=== PATIENT | female | born 1955 | race Caucasian/White ===

== ENCOUNTER → 2016-06-17 07:02 | Day surgery (SDC) | payer OTHER ==
[~2016-06-17 07:02] MED LIST: Acetaminophen TAB* 325 MG PO PRN; Buffered Lidocaine 1% SYRIN* 3 ML/SYR SYRINGE INTRADERM ONE; Cyclopentolate 1% OPTH.SOL* 2 ML BTL ONE; Flurbiprofen 0.03% OPTH.SOL* 2.5 ML BTL ONE; Lidocaine 1% MPF* 2 ML VIAL ONE; Lidocaine 2% EPI 1:200000 MPF* 20 ML VIAL ONE; Midazolam* 1 MG/ML 5 ML VIAL (5 MG) ONE; Neomycin/Polymy/Dex OPTH.SUSP* MAXITROL 0.1% 5 ML ONE; Phenylephrine 2.5% OPTH.SOL* 2 ML BTL ONE; Povidone Iodine 5% OPTH* 30 ML BTL ONE; Proparacaine 0.5% OPHTH.SOL* 15 ML BTL ONE; acetaZOLAMIDE TAB* 250 MG ONE
[2016-06-17 09:49] VITALS: BP 134/80
--- NOTE | 2016-06-17 23:37 | OP ---
DATE OF OPERATION: 06/17/16 [facility] DATE OF : 51 SURGEON: Mark Rocha MD PREOPERATIVE DIAGNOSIS: Cataract, left eye. POSTOPERATIVE DIAGNOSIS: Cataract, left eye. OPERATIVE PROCEDURE: Phacoemulsification, left eye with IOL. DESCRIPTION OF PROCEDURE: The patient was brought to the operating room after being given 1/2% Alcaine with epinephrine drops in the preoperative area. The eye was prepped and draped in the usual sterile fashion. Sterile drape and eyelid speculum were placed. Again, topical 1/2% Alcaine with epinephrine was given. A paracentesis incision was made at the 3 o'clock position with the No.75 blade. Clear cornea incision 2.2 x 2.2-mm was created at the 6 o'clock position starting at the anterior limbus using the 2.2-mm keratome. The anterior chamber was irrigated with 0.4 mL of 1% non-preservative intracameral lidocaine and filled with DisCoVisc. A capsulorrhexis was completed using the cystotome and the Utrata forceps. Hydrodissection was performed with balanced salt solution. The lens nucleus was removed with the Phacoemulsification handpiece without incident. Cortex was removed with the irrigation-aspiration handpiece. The capsular bag was re-inflated using DisCoVisc and an [id number] implant was inserted with the shooter. The irrigation-aspiration handpiece was used to remove all residual DisCoVisc. The eye was refilled with balanced salt solution and the wound checked and found to be watertight. Topical Maxitrol drops were given. [id number]/[facility] #: [id number] [facility]ERNITY HOSPITALDave
== END | disposition home or self-care (01) ==
LOC: OREAST 07:02
PROVIDERS: ATTEND Specialist
DX: H25.812 Combined forms of age-related cataract, left eye (principal); E03.9 Hypothyroidism, unspecified
CPT/HCPCS: J2250; V2632

== ENCOUNTER 2016-07-23 07:23 | Inpatient (IN) | payer OTHER ==
--- NOTE | 2016-07-20 13:42 | HP ---
HISTORY AND PHYSICAL: DATE OF SURGERY: 07/23/16 DATE OF OFFICE VISIT: 07/20/16 SURGEON: Clarisa Barr MD. (DICTATED BY RUBY CAMARILLO) PROCEDURE: Right total hip arthroplasty. CHIEF COMPLAINT: Right hip pain. HISTORY OF PRESENT ILLNESS: Ms. Vasques is a 61-year-old female with complaints of right hip pain secondary to advanced osteoarthritis. She has failed conservative management and has elected to proceed with a right total hip arthroplasty, which is scheduled for 07/23/[address] Barr. PAST MEDICAL HISTORY: 1. High cholesterol. 2. Gout. 3. Osteoarthritis. 4. GERD. 5. Hypothyroidism. PAST SURGICAL HISTORY: 1. Bunionectomy. 2. Cataract surgery. 3. Trigger finger release. 4. Carpal tunnel release. 5. Appendectomy. 6. Hysterectomy. CURRENT MEDICATIONS: 1. Livalo 2 mg every day. 2. Lexapro 10 mg every day. 3. Levoxyl 100 mcg every day. 4. Glucosamine chondroitin 500 complex daily. 5. Calcium plus vitamin D daily. 6. Multivitamin daily. 7. Biotin. 8. Aleve. ALLERGIES: To ADHESIVE TAPE. FAMILY HISTORY: Heart disease, thyroid cancer, diabetes. SOCIAL HISTORY: She is a 61-year-old female. She lives alone. She is a fiber optic assembly worker. She does not smoke, use drugs or alcohol. REVIEW OF SYSTEMS: A complete 14-point review of systems was reviewed with the patient and was positive for hypothyroidism and occasional PVCs. She denies any anesthesia problems, history of DVT, PE, hepatitis C, HIV, or MRSA. PHYSICAL EXAMINATION GENERAL: She is well developed, well nourished, in no acute distress. VITAL SIGNS: She stands 5 feet 2 inches tall and weighs 165 pounds. Her blood pressure is 132/84. Heart rate 76. HEENT: Normocephalic, atraumatic. NECK: Supple. No palpable lymph nodes. Trachea is midline. CARDIO: Regular rate and rhythm. PULMONARY: The lungs are clear to auscultation bilaterally. ABDOMEN: Soft, nontender, nondistended. MUSCULOSKELETAL: Right lower extremity, the skin is intact. She has decreased range of motion of the right hip. She walks with an antalgic-type gait favoring her right hip. Her lower extremity muscle group strengths are intact at 5/5. She has 2+ dorsalis pedis pulses and intact sensation. NEUROLOGIC: She is alert and oriented x3. Cranial nerves II through XII are intact. ASSESSMENT AND PLAN: Ms. Vasques is a 61-year-old female with complaints of right hip pain secondary to advanced osteoarthritis. She has failed conservative management and elected to proceed with a right total hip arthroplasty, which is scheduled for 07/23/[address] Barr discussed the risks and benefits of the surgery at today's visit and all of her questions were answered. Coumadin, Colace, and Percocet were sent to her pharmacy for postoperative DVT prophylaxis and pain control. She will see Dr. Barr back 2 weeks after the surgery. RUBY CAMARILLO [id number]/[facility] #: [id number] MTDD
[~2016-07-23 07:23] MED LIST changes: -Acetaminophen TAB* 325 MG PO PRN; +Buffered Lidocaine 1% SYR 3ML* 3 ML/SYR SYRINGE INTRADERM ONE; -Buffered Lidocaine 1% SYRIN* 3 ML/SYR SYRINGE INTRADERM ONE; -Cyclopentolate 1% OPTH.SOL* 2 ML BTL ONE; -Flurbiprofen 0.03% OPTH.SOL* 2.5 ML BTL ONE; -Lidocaine 1% MPF* 2 ML VIAL ONE; -Lidocaine 2% EPI 1:200000 MPF* 20 ML VIAL ONE; -Midazolam* 1 MG/ML 5 ML VIAL (5 MG) ONE; -Neomycin/Polymy/Dex OPTH.SUSP* MAXITROL 0.1% 5 ML ONE; -Phenylephrine 2.5% OPTH.SOL* 2 ML BTL ONE; -Povidone Iodine 5% OPTH* 30 ML BTL ONE; -Proparacaine 0.5% OPHTH.SOL* 15 ML BTL ONE; -acetaZOLAMIDE TAB* 250 MG ONE
[2016-07-23] MEDS ORDERED: ceFAZolin 2 GM PREMIX(*) 2 GM/50 ML BAG IVPB ONE (07:39)
[2016-07-23] MEDS ORDERED: Buffered Lidocaine 1% SYRIN* 5 ML/SYR SYRINGE ONE (07:40)
[2016-07-23] MEDS ORDERED: Midazolam* 1 MG/ML 5 ML VIAL (5 MG) ONE (08:58)
[2016-07-23] MEDS ORDERED: Morphine PF AMP (0.5MG/ML)* 5 MG/10 ML AMP ONE (08:58)
[2016-07-23] MEDS ORDERED: fentaNYL* 50 MCG/ML 2 ML VIAL (100 MCG VIAL) ONE (08:58)
[2016-07-23] MEDS ORDERED: Propofol* 10 MG/ML 20 ML BTL IV PUSH ONE (10:22)
[2016-07-23] MEDS ORDERED: Metoclopramide IV* 5 MG/ML 2 ML VIAL IV PRN (10:25)
[2016-07-23] MEDS ORDERED: HYDROmorphone* 1 MG/ML 1 ML SYR IV PRN (10:25)
[2016-07-23] MEDS ORDERED: Scopolamine 1.5 mg* PATCH TRANSDERM PRN (10:25)
[2016-07-23] MEDS ORDERED: Ondansetron INJ* 2 MG/ML VIAL IV PRN (10:25)
[2016-07-23] MEDS ORDERED: fentaNYL* 50 MCG/ML 2 ML VIAL (100 MCG VIAL) IV PRN (10:25)
[2016-07-23] MEDS ORDERED: DiMENhydriNATE IV* 50 MG/ML VIAL IV PUSH PRN (10:46)
[2016-07-23] MEDS ORDERED: oxyCODONE TAB* 5 MG TAB PO PRN ×2 (10:46→21:38)
[2016-07-23] MEDS ORDERED: Naloxone* 0.4 MG/ML 1 ML VIAL IV PRN (10:46)
[2016-07-23] MEDS ORDERED: Acetaminophen TAB* 325 MG PO PRN (10:46)
[2016-07-23] MEDS ORDERED: EPHEDrine (Pressors)* 50 MG/ML VIAL ONE (11:44)
--- NOTE | 2016-07-23 12:05 | RAD ---
INDICATION: Right total hip replacement surgery. TECHNIQUE: A portable film of the pelvis was obtained in the operating room. FINDINGS: The patient is undergoing a right total hip replacement surgery. The acetabular prostheses is in place. There is a femoral template in place. There is a surgical defect along the lateral aspect of the hip. There is a metallic marker present overlying the hip region. IMPRESSION: INTRAOPERATIVE CONTROL FILM.
[2016-07-23] MEDS ORDERED: Magnesium Hydroxide LIQ* 30 ML UDC PO PRN (12:09)
[2016-07-23] MEDS ORDERED: Polyethylene Glycol 3350* 17 GM PACKET PO PRN (12:09)
[2016-07-23] MEDS ORDERED: Bisacodyl SUPP* 10 MG SUPP PR PRN (12:09)
[2016-07-23] MEDS ORDERED: Bupivacaine 0.5% SDV PF* 30 ML VIAL ONE (12:26)
--- NOTE | 2016-07-23 13:26 | RAD ---
Indication: Postop RIGHT total hip replacement Comparison: June 19, 2016 Technique: AP pelvis and proximal femurs, AP RIGHT hip, crosstable lateral RIGHT hip. Report: RIGHT total hip prosthesis in place with normal alignment. Negative for periprosthetic fracture. Surrounding soft tissue edema and lateral subcutaneous emphysema. IMPRESSION: Unremarkable immediate postop appearance following RIGHT total hip replacement.
[2016-07-23] MEDS: Nalbuphine* 20 MG/ML 1 ML VIAL IV PRN ×2 (15:41→21:51)
[2016-07-23] MEDS ORDERED: Warfarin TAB(*) 6 MG PO ONE (17:00)
[2016-07-23] MEDS: ceFAZolin 1 GM in Dextrose (*) 1 GM/50 ML BAG IVPB SCH (17:33)
[2016-07-23] MEDS: Pitavastatin (NF) 2 MG TAB PO SCH (17:35)
[2016-07-23] MEDS: oxyCODONE TAB* 5 MG TAB PO PRN ×2 (18:38→21:49)
[2016-07-23] MEDS: Docusate CAP* 100 MG PO SCH (21:50)
[2016-07-24] MEDS: ceFAZolin 1 GM in Dextrose (*) 1 GM/50 ML BAG IVPB SCH ×2 (02:22→09:41)
[2016-07-24] MEDS: oxyCODONE TAB* 5 MG TAB PO PRN (02:29)
[2016-07-24] MEDS ORDERED: oxyCODONE/Acetamin 5/325 MG* TAB PO PRN (03:00)
[2016-07-24] MEDS ORDERED: Ondansetron TAB* 4 MG PO PRN (03:00)
[2016-07-24] MEDS ORDERED: oxyCODONE TAB* 5 MG TAB PO PRN (03:00)
[2016-07-24] MEDS ORDERED: Morphine INJ* 2 MG/ML 1 ML SYRINGE IV PRN (03:00)
[2016-07-24] MEDS ORDERED: Acetaminophen TAB* 325 MG PO PRN (03:00)
[2016-07-24] MEDS ORDERED: diPHENhydraMINE IV* 50 MG/ML 1 ml VIAL (BENADRYL) IV PRN (03:00)
[2016-07-24] MEDS: Levothyroxine TAB* 100 MCG TAB PO SCH (05:45)
[2016-07-24 06:39] LABS: Hematocrit 31 % (35-47); Hemoglobin 11.2 g/dl (12.0-16.0)
[2016-07-24 06:53] LABS: Calcium 8.5 mg/dL (8.6-10.3); EGFR African American 110.5 (>60); EGFR Non-African American 85.9 (>60); Potassium 3.7 mmol/L (3.5-5.0)
--- NOTE | 2016-07-24 08:17 | OP ---
DATE OF OPERATION: 07/23/16 - ROOM #342 DATE OF : 51 ATTENDING SURGEON: Clarisa Barr MD TERMINAL SYSTEM OPERATOR: RUBY Schwartz, Ms. Villa did help throughout the procedure with preparation of the leg, wound retraction, manipulation of the leg, and wound closure. ANESTHESIOLOGIST: Gini Hale MD ANESTHESIA: Spinal. PRE-OP DIAGNOSIS: Severe end-stage degenerative osteoarthritis of the right hip joint. POST-OP DIAGNOSIS: Severe end-stage degenerative osteoarthritis of the right hip joint. OPERATIVE PROCEDURE: Right total hip arthroplasty. ESTIMATED BLOOD LOSS: 300 cc. COMPLICATIONS: None. SPECIMEN: Femoral head and acetabular reaming, sent to pathology. HARDWARE USED: This is uncemented [email or web address] total hip hardware. For the cup, a Tritanium cluster hole shell 48C, 220-mm cancellous bone screws were used, polyethylene liner, Trident X3 0-degree 32C. For the stem, an Accolade TMZF, size 2.5 with a 127-degree neck. For the head, a Biolox delta 32 +0 ceramic V40 femoral head. BRIEF HISTORY/INDICATION: Ms. Vasques is a 61-year-old female with chronic right hip pain, which has not resolved with conservative treatment. She failed treatment with antiinflammatories, pain medication, and physical therapy. Radiographs showed severe qprl-sd-[id number] contact and arthritis of the right hip. Due to the patient's continued pain and decreased quality of life, she elected to have right total hip arthroplasty. Informed consent was obtained from the patient. She understands the risks of the procedure include but are not limited to bleeding, infection, damage to nearby structures, continued pain, need for further surgery, intraoperative fracture, nerve palsy, hardware failure or loosening, dislocation, leg length discrepancy, stroke, heart attack , blood clot, and . She wished to proceed. INTRAOPERATIVE FINDINGS: Intraoperatively, the patient was noted to have a dysplastic hip with a shallow acetabular cup. She had complete loss of cartilage in the acetabulum and femoral head. Osteopenia was noted, which was advanced compared to her age. DESCRIPTION OF PROCEDURE: Ms. Vasques was identified in the preanesthesia unit. Her right lower extremity was marked as the correct operative site. Informed consent was signed and placed in the chart. The patient was taken to the operating room and placed under spinal anesthesia. The Szymanski catheter was placed. The patient was placed in the left lateral decubitus position on the peg board. All bony prominences were well padded. Right lower extremity was prepped and draped in the usual sterile fashion. Preop time-out was made to correctly identify the patient's side and site. Appropriate perioperative antibiotics were given within 1 hour of incision. A 12-cm posterior hip incision was made with a 10-blade and carried down to the lateral fascial layer. Lateral fascial layer was then incised in line with the skin incision. A Charnley retractor was placed. Piriformis and conjoined tendons were identified. These were elevated off the posterolateral femur using electrocautery and tagged with two #5 Ethibonds. Next, electrocautery was used to make a posterolateral capsular flap and the capsule was also tagged with #5 Ethibonds. The hip was carefully dislocated. Lesser troch to center of the femoral head measured 50 mm. Oscillating saw was used to make a femoral neck cut, appropriate based on preop templating. The femoral head was removed and sent to pathology. The femur was carefully retracted anteriorly. After appropriate placement of retractor, the acetabulum was easily visualized. Any remaining labrum was sharply removed from the acetabular rim using a long-handle knife. The acetabulum was noted to be dysplastic with complete loss of cartilage. There is minimal anterior and posterior blank and there is a shallow cup. Acetabulum was sequentially reamed up to a size 47. A good bleeding bone bed was obtained. Osteopenia was noted. 47 trial had excellent fit. A Tritanium cluster hole shell size 48C was chosen. This was impacted into the acetabulum without difficulty. The acetabular shell was stable with appropriate anteversion and abduction angle. Two 6.5 cancellous bone screws were placed in the superoposterior quadrants, these were length of 20 and 20 mm. The Trident X3 0-degree polyethylene insert was chosen as the liner. This was 32C. This was impacted into the acetabulum without difficulty. Attention was next turned to the preparation of the femur. A canal finder was used to enter the proximal femur. The proximal femur was sequentially broached up to a size 2.5. A 127-degree neck trial and 32 +0 femoral head trial were chosen. Lesser troch to center of the femoral head measured 52 mm. Hip was reduced and taken through range of motion. The hip was stable in all positions. Leg length and soft tissue tension were deemed to be appropriate. The hip was carefully dislocated. All trials were carefully removed. Final implant chosen was an Accolade TMZF, size 2.5 with a 127-degree neck. This was impacted into the femoral canal without difficulty. A 32 +0 Biolox delta ceramic V40 femoral head was chosen. This was impacted onto the femoral neck without difficulty. Lesser troch to center of the femoral head measured 52 mm. This was appropriate based on preop templating. The hip was carefully reduced at this time. The hip was taken through range of motion and was stable in all positions. There was good soft tissue tension. The hip was copiously irrigated with sterile saline. Previously tagged capsule and tendons were reapproximated to the posterolateral femur through 2 trochanteric drill holes. The lateral fascial layer was reapproximated using interrupted #1 Vicryls. The rest of the incision was closed in a layered fashion using 0 and 2-0 Vicryls. Skin was closed using 3-0 Monocryl and Dermabond. Sterile Adaptic, 4x4's, and paper tape were used to cover the incision. The patient's anesthesia was reversed without difficulty. She was taken to the PACU in stable condition. Intended weightbearing will be weightbearing as tolerated. Intended DVT prophylaxis will be Coumadin with a Lovenox bridge. [id number]/[facility] #: [id number] MAK
[2016-07-24] MEDS: CMC Escitalopram (NF) 10 MG TAB PO SCH (09:27)
[2016-07-24] MEDS: Docusate CAP* 100 MG PO SCH ×2 (09:28→20:29)
[2016-07-24] MEDS: oxyCODONE/Acetamin 5/325 MG* TAB PO PRN ×4 (10:35→22:45)
[2016-07-24] MEDS: Enoxaparin(*) 30 MG/0.3 ML SYR SUBCUT SCH (11:54)
[2016-07-24 12:57] LABS: Urine Bacteria Absent (Absent); Urine Bilirubin Negative (Negative); Urine Glucose Negative (Negative); Urine Nitrite Negative (Negative)
--- NOTE | 2016-07-24 16:17 | RAD ---
INDICATION: Postoperative fever COMPARISON: July 21, 2016 TECHNIQUE: PA and lateral dual-energy views were obtained. FINDINGS: Bones/Soft Tissues: There are no acute bony findings. Cardiomediastinal: The cardiomediastinal silhouette is normal. Lungs: There are no infiltrates. Pleura: There are no pleural effusions. Other: None IMPRESSION: NO ACTIVE DISEASE.
[2016-07-24] MEDS ORDERED: Warfarin TAB(*) 6 MG PO ONE (17:30)
[2016-07-24] MEDS: Pitavastatin (NF) 2 MG TAB PO SCH (17:44)
[2016-07-25] MEDS: oxyCODONE/Acetamin 5/325 MG* TAB PO PRN ×3 (05:32→12:03)
[2016-07-25] MEDS: Levothyroxine TAB* 100 MCG TAB PO SCH (05:33)
[2016-07-25 06:17] LABS: Hematocrit 31 % (35-47); Hemoglobin 10.6 g/dl (12.0-16.0)
[2016-07-25 08:18] VITALS: BP 126/76
[2016-07-25] MEDS: CMC Escitalopram (NF) 10 MG TAB PO SCH (08:47)
[2016-07-25] MEDS: Docusate CAP* 100 MG PO SCH (08:47)
--- NOTE | 2016-07-25 10:28 | PN ---
Progress Note - Progress Note SOAP: Subjective: [Pt was seen today sitting up in chair. She states that she is feeling very good today. Pain is well controlled and she has not been having any fevers. Pt denies any SOB or calf pain. ] Objective: [General: Pt is awake, alert and oriented. NAD. Appropriate mood and affect MSK: RLE: Dressing was changed today. Incision was well approximated. Previous dressing had dry blood on it. Pt is able to dorsiflex and planter flex. PT and DP pulses 2+. Sensation is intact to light touch. ] Vital Signs Temp 99.3 F 07/25/16 07:48 Pulse 86 07/25/16 07:48 Resp 16 07/25/16 08:47 BP 126/76 07/25/16 07:48 Pulse Ox 99 07/25/16 07:48 Intake & Output 07/24/16 07/25/16 07/25/16 18:59 06:59 18:59 Intake Total 1984 700 Output Total 3050 700 Balance -1066 0 Intake: IV Fluids 990 LR 990 IVPB 114 ABX - CEFAZOLIN 114 Oral 880 700 Output: Urine 1050 700 Szymanski 2000 Other: Estimated Void Large Assessment: [S/P RTHA ] Plan: [Pt was cleared for discharge today She will hold warfarin until her recheck date. Continue PT at home Continue pain meds at home. Follow up in 10 - 14 days for suture removal. ]
[2016-07-25] MEDS: Enoxaparin(*) 30 MG/0.3 ML SYR SUBCUT SCH (12:05)
--- NOTE | 2016-07-26 02:29 | DS ---
DISCHARGE SUMMARY: DATE OF ADMISSION: 07/23/16 DATE OF DISCHARGE: 07/25/16 ADMITTING DIAGNOSIS: Right hip osteoarthritis. CONSULTATIONS: Physical Therapy/Occupational Therapy. HISTORY OF PRESENT ILLNESS: Ms. Vasques is a 61-year-old female with complaints of right hip pain secondary to advanced osteoarthritis. She failed conservative management and elected to proceed with a right total hip arthroplasty, which was now done by Dr. Barr on 07/23/16. HOSPITAL COURSE: The patient was admitted to [facility] on 07/23/16 and underwent a right total hip arthroplasty with no complications. The patient recovered briefly in the postop anesthesia care unit and then was transferred to the short stay surgical unit in stable condition. On postop day 1, the patient's H and H was 11.2 and 31, INR was 1.21 after 6 mg Coumadin the night before. The dressing was clean, dry and intact. The right lower extremity was neurovascularly intact. She could demonstrate dorsi and plantar flexion with good strength. The patient was able to get out of bed with physical therapy. Pain was controlled with 10 mg of oxycodone. The patient did have a temperature of 102.3 on this day. Temperature decreased after and the patient remained afebrile through the remainder of the hospital course. On postop day 2, the urinary catheter was discontinued. The patient was able to void without any difficulty. Incision was found to be benign with minimal drainage. No erythema. No warmth. The patient's H and H was 10.6 and 31, INR was 2.21 after 6 mg of Coumadin the night before. The patient was able to ambulate using a rolling walker and assistance. The patient's pain was well controlled and was found to be stable for discharge. DISCHARGE CONDITION: Good. DISCHARGE MEDICATIONS: New prescriptions: 1. Percocet 5/325. 2. Colace. 3. Warfarin 2 mg to be taken as provider instructs. Home medications: 1. Livalo 2 mg every day. 2. Lexapro 10 mg every day. 3. Levoxyl 100 mcg every day. 4. Glucosamine and chondroitin 500 mg complex daily. 5. Calcium plus vitamin D. 6. Multivitamin. 7. Biotin. 8. Aleve. DISCHARGE INSTRUCTIONS: The patient was instructed to follow up in 2 weeks at the office for suture removal. She was advised not to put any creams or ointments on the incision. She is allowed to shower in 3 to 4 days. She is instructed not to submerge the incision in any water and to pat dry after finished. She is instructed not to drive while on narcotic pain medications. She will take Percocet 5/325 one to two every 4 to 6 hours as needed for pain. She will hold warfarin tonight and until the recheck. She will call the office if temperature is greater than 100.5, pain continues to increase despite medication, increased redness around the incision site with increased heat, large amount of bleeding or yellowish drainage from the wound or an increase in calf pain. She will go to the ER should she have any sort of shortness of breath or chest pain. RUBY MARTINES [id number]/[facility] #: [id number] MAK
--- NOTE | 2016-07-26 22:42 | PN ---
Progress Note - Progress Note SOAP: 07/24/2016 @ 9:30 AM Subjective: 61 y/o female s/p R WILMAN by Dr. Barr on 07/23/2016. Patient continuing to have pain overnight. Ambulatory, eager for DC home. Tmax overnight 101, otherwise VSS Objective: General- Well appearing, NAD MSK- Surgical dressing intact, no drainage noted, + DF/PF. PT 2+ R LE. Mild b/l LE edema. Lungs- CTA b/l no c/r/w Assessment: 61 y/o female s/p R WILMAN by Dr. Barr on 07/23/2016. Plan: - Patient eager for D/C, however due to elevated temp overnight and continued this AM fever work up warrented - DVT lovenox, ASA upon DC - Continue PT OT
== END 2016-07-25 12:00 | disposition home health service (06) | DRG 301 ==
LOC: AA 07:23 → SSU 13:15
PROVIDERS: ADMIT Orthopaedic Surgery Adult Reconstructive Orthopaedic Surgery; ATTEND Orthopaedic Surgery Adult Reconstructive Orthopaedic Surgery
PROC: 0SR904Z Replacement of Right Hip Joint with Ceramic on Polyethylene Synthetic Substitute, Open Approach (ICD-10-PCS; principal; 2016-07-23 09:00)
DX: M16.11 Unilateral primary osteoarthritis, right hip (principal); F32.9 Major depressive disorder, single episode, unspecified; Z79.01 Long term (current) use of anticoagulants; E78.00 Pure hypercholesterolemia, unspecified; M10.9 Gout, unspecified; K21.9 Gastro-esophageal reflux disease without esophagitis; E03.9 Hypothyroidism, unspecified; Z98.49 Cataract extraction status, unspecified eye; Z82.49 Family history of ischemic heart disease and other diseases of the circulatory system; Z83.3 Family history of diabetes mellitus; Z80.9 Family history of malignant neoplasm, unspecified; Z91.048 Other nonmedicinal substance allergy status; F41.9 Anxiety disorder, unspecified; G89.29 Other chronic pain; M54.5 Low back pain; Q65.89 Other specified congenital deformities of hip; M85.88 Other specified disorders of bone density and structure, other site
CPT/HCPCS: 36415; 71020; 72170; 80048; 81003; 81015; 85014; 85018; 85610; 94760; A9270-GY; C1713; C1776; J0690; J1650; J2250; J2300; J2704; J3010

== ENCOUNTER 2017-02-22 07:17 | Day surgery (SDC) | payer OTHER ==
--- NOTE | 2017-02-11 14:33 | HP ---
PREOPERATIVE HISTORY AND PHYSICAL: DATE OF ADMISSION/SURGERY: 02/22/17 ATTENDING SURGEON: Miguel Angel Izaguirre MD * (DICTATED BY RUBY CORBETT) PROCEDURE: Right shoulder arthroscopic rotator cuff repair and debridement. CHIEF COMPLAINT: Right shoulder pain. HISTORY OF PRESENT ILLNESS: Suzanne is a 62-year-old female who presents to the clinic for right shoulder pain due to rotator cuff tear. She has failed conservative measures to include an injection and physical therapy and therefore , has agreed to undergo a right shoulder arthroscopic rotator cuff repair, decompression and debridement with Dr. Izaguirre on 02/22/17. PAST MEDICAL HISTORY: Hypercholesterolemia, osteoarthritis, GERD, hypothyroidism, depression, history of infrequent PVC's. PAST SURGICAL HISTORY: Bunionectomy, cataract surgery, trigger finger carpal tunnel release, right hip, appendectomy, and tubal ligation. The patient denies prior complications with anesthesia. MEDICATIONS: 1. Lidoderm 5%, apply every 12 hours as needed for pain. 2. Amoxicillin 500 mg 4 caps by mouth 1 hour before appointment. 3. Livalo 2 mg, take 1 by mouth every morning. 4. Lexapro 10 mg 1 by mouth every day. 5. Levoxyl 100 mcg 1 by mouth every day. 6. Glucosamine and chondroitin 500 mg 1 by mouth daily. 7. Calcium 500 plus vitamin D 1 by mouth daily. 8. Multivitamin 1 by mouth daily. 9. Biotin 1 by mouth daily. 10. Aleve 200 mg 1 tab twice a day as needed for pain. ALLERGIES: No known drug allergies. She is allergic to ADHESIVE TAPE. FAMILY HISTORY: Positive for paternal diabetes, heart disease, cancer, and hypertension. SOCIAL HISTORY: She lives alone. She denies tobacco or illegal drug use. She reports daily alcohol consumption, 2 glasses of wine a day. REVIEW OF SYSTEMS: A 14-point review of systems was reviewed with the patient. Positive for current complaint, otherwise negative. Denies fever, chills. Denies chest pain or shortness of breath. Denies history of bleeding disorder. Denies history of DVT or PE. PHYSICAL EXAMINATION GENERAL: Well-developed, well-nourished 62-year-old female, in no acute distress. VITAL SIGNS: Height 62 inches, weight 132 pounds. Pulse 62, blood pressure 126 /76, respiratory rate 16, temperature 97.0. BMI 27.9. HEENT: Normocephalic, atraumatic. PERRLA. Throat clear. NECK: Supple. PULMONARY: Lungs are clear to auscultation bilaterally. No wheezing, rhonchi, or rales. CARDIO: Regular rate and rhythm. S1 and S2. No murmurs, gallops, or rubs. No edema. ABDOMEN: Positive bowel sounds, soft, nontender. NEUROLOGIC: Alert and oriented x 3. Cranial nerves are grossly intact. Sensation is intact to light touch. MUSCULOSKELETAL: Right upper extremity: MRI of the right shoulder reveals a full thickness tear of the supraspinatus tendon with retraction of the muscle, 2.8 cm superior migration of the humeral head, mild osteoarthritic glenohumeral joint changes. IMPRESSION: Right shoulder rotator cuff tear. PLAN: The patient is scheduled to undergo a right shoulder arthroscopic rotator cuff repair, decompression and debridement. She has been cleared by her PCP pending blood work. She will return to the office 10 to 14 days postop for followup and suture removal. Percocet will be sent to the patient's pharmacy for postop pain management. RUBY CORBETT [id number]/[facility] #: [id number] MAK
[~2017-02-22 07:17] MED LIST changes: +Buffered Lidocaine 0.9% SYRIN* 5 ML/SYR SYRINGE INTRADERM ONE; -Buffered Lidocaine 1% SYR 3ML* 3 ML/SYR SYRINGE INTRADERM ONE
[2017-02-22] MEDS ORDERED: ceFAZolin 2 GM PREMIX (*) 2 GM/50 ML BAG IVPB ONE (07:36)
[2017-02-22] MEDS ORDERED: Midazolam* 1 MG/ML 2 ML VIAL (2 MG) ONE (08:57)
[2017-02-22] MEDS ORDERED: fentaNYL* 50 MCG/ML 2 ML VIAL (100 MCG VIAL) ONE (08:57)
[2017-02-22] MEDS ORDERED: PROCHLORPERAZINE INJ 5 MG/ML 2 ML VIAL IV PRN (09:10)
[2017-02-22] MEDS ORDERED: Acetaminophen TAB* 325 MG PO PRN (09:10)
[2017-02-22] MEDS ORDERED: Ondansetron INJ* 2 MG/ML VIAL IV PRN (09:10)
[2017-02-22] MEDS ORDERED: oxyCODONE TAB* 5 MG TAB PO PRN (09:10)
[2017-02-22] MEDS ORDERED: DiMENhydriNATE IV* 50 MG/ML VIAL IV PUSH PRN (09:10)
[2017-02-22] MEDS ORDERED: HYDROmorphone INJ* 1 MG/ML CARPUJECT SYRINGE IV PRN (09:10)
[2017-02-22] MEDS ORDERED: fentaNYL* 50 MCG/ML 2 ML VIAL (100 MCG VIAL) IV PRN (09:10)
[2017-02-22] MEDS ORDERED: Famotidine IV* 10 MG/ML 2 ML (20 mg) ONE (09:48)
[2017-02-22] MEDS ORDERED: ROPIVACAINE 5 MG/ML 30 ML BTL (0.5%) ONE (09:49)
[2017-02-22] MEDS ORDERED: Bupivacaine 0.25% SDV* 30 ML ONE (09:54)
[2017-02-22] MEDS ORDERED: Ondansetron INJ* 2 MG/ML VIAL ONE (11:22)
[2017-02-22] MEDS ORDERED: Propofol* 10 MG/ML 20 ML BTL IV PUSH ONE (11:22)
[2017-02-22] MEDS ORDERED: Dexamethasone IV* 4 MG/ML 1 ML (4 MG) ONE (11:22)
[2017-02-22] MEDS ORDERED: Ketorolac INJ* 30 MG/ML 1 ML VIAL ONE (11:22)
[2017-02-22 13:17] VITALS: BP 120/75
--- NOTE | 2017-02-23 04:12 | OP ---
CC: PCP, Abraham Lemons MD * DATE OF OPERATION: 02/22/17 - [facility] DATE OF : 51 SURGEON: Miguel Angel Izaguirre MD CHAIRLIFT OPERATOR: RUBY Shaffer. An assistant food service manager was needed for the entirety of the case to help with positioning, retraction, and utilized throughout all portions of the case. ANESTHESIOLOGIST: Buddy Guido MD ANESTHESIA: General interscalene block. PRE-OP DIAGNOSIS: Right shoulder complete rotator cuff tear. POST-OP DIAGNOSES: Right shoulder complete rotator cuff tear with large anterolateral acromial spur and partial tearing in the subscapularis as well as mild osteoarthritis of the shoulder. OPERATIVE PROCEDURE: Right shoulder arthroscopy with extensive glenohumeral debridement includin. Chondroplasty of the humeral head. 2. Subacromial decompression with acromioplasty. 3. Rotator cuff repair for supraspinatus and part of infraspinatus large tear in a double-row fashion. INDICATIONS: Suzanne Vasques is a 62-year-old female, who recently had a hip replacement done that she did very well with. She has shoulder pain, she is diagnosed with a complete tear of the rotator cuff. She has failed conservative management. Risks and benefits of surgery versus nonoperative treatment were discussed at length. She has elected to proceed with surgery. COMPLICATIONS: None. ESTIMATED BLOOD LOSS: Minimal. IMPLANTS USE: Two Shields and Nephew 4.75 Healicoils and 1 Multifix. DESCRIPTION OF PROCEDURE: The patient was greeted in the preoperative area by the attending surgeon. Correct extremity was marked and consent was confirmed. The patient was brought back to the operating suite where she was placed in supine position on the operating room table and she underwent interscalene nerve block by the anesthesiologist after which she underwent general anesthesia with LMA intubation, after which she was placed in the left lateral decubitus position. She was then secured with a pegboard and axillary roll was placed. The right arm was draped unsterile with 10 pounds of traction. The right shoulder was prepped and draped in the usual sterile fashion beginning with chlorhexidine soap, scrub, and alcohol wipe and final prep of ChloraPrep. After appropriate surgical pause indicating side, site, procedure, and administration of antibiotics, the standard posterolateral portal was made sharply with 11 blade. Scope was introduced to the joint. Joint was examined. There was abundant significant synovitis in the shoulder. The biceps appeared to have been ruptured spontaneously. There was evidence of a full- thickness large tear of the supraspinatus. The glenoid had grade 1 and 2 changes. The humeral head had areas of grade 0 to 1 changes and areas of grade 2 changes with small unstable flaps. The anterior portal was made in an outside- in fashion. The shaver was used to debride back the anterior, posterior, superior labrum as well as the biceps stump. A small chondroplasty was done on the humeral head. There was abundant synovitis to where the greater tuberosity was meeting the cartilage surface. The inferior recess was intact with significant amount of synovitis. The subscap was intact, but had high-grade partial thickness tearing. Decision was made to not repair this as it did not encompass more than 10% of the tendon by this view. There was hemostasis obtained at all times using electrocautery device. The scope was positioned in subacromial space. Subacromial space was examined. There was abundant bursa present. It was very hyperemic and friable. This was debrided back using shaver through the lateral portal. This demonstrated a large U-shaped tear with traction to the level of the glenoid of the rotator cuff. The shaver was used to remove the abundant bursal layer. The undersurface of the acromion was skeletonized using electrocautery device, which demonstrated very large and sharp anterolateral spur and calcification of the CA ligament. The 4.0 oval bur was then used to do an acromioplasty to remove the large spur, and once this was complete, all excess bone and debris was removed from that portion of the case. The attention was directed to the rotator cuff. The cuff was then mobilized. Tissue was of good quality, but again very hyperemic. The shaver was used to debride back the edges of the rotator cuff. The greater tuberosity was prepared in the usual fashion with electrocautery device, the rasp, as well as the 4.0 oval bur to gently decorticate the greater tuberosity. The two 4.75 Healicoils were placed with excellent purchase along the medial row anteriorly and posteriorly. Sutures were then passed in the tendon. The awl was also used to do small microfracture to allow from further points of fixation of the tendon. The sutures were then passed through the tendon in horizontal mattress configuration and tied down using arthroscopic- knot typing technique. This helped to restore the rotator cuff to proper position. Once this was done, 6 strands of the remaining sutures were then passed through Multifix anchor, which was then impacted in place into the lateral row for double-row fixation. Wounds copiously irrigated with gentle saline. Final images were obtained. The wounds were closed with 3-0 nylon. Sterile dressings, Cryo/Cuff, as well as an UltraSling were placed. She was awoken from anesthesia and transferred to the PACU in stable condition. POSTOPERATIVE PLAN: She will be nonweightbearing. She will be allowed elbow, hand, and wrist range of motion. She will be discharged on pain medication. DVT prophylaxis was considered but deferred due to no previous personal or family history. I will see the patient back in 10 to 14 days. [id number] #: [id number] MTDD
== END 2017-02-22 13:17 | disposition home or self-care (01) ==
LOC: OREAST 07:17
PROVIDERS: ATTEND Orthopaedic Surgery
DX: M75.121 Complete rotator cuff tear or rupture of right shoulder, not specified as traumatic (principal); M75.91 Shoulder lesion, unspecified, right shoulder; M19.011 Primary osteoarthritis, right shoulder; E03.9 Hypothyroidism, unspecified; F32.9 Major depressive disorder, single episode, unspecified; E78.00 Pure hypercholesterolemia, unspecified; K21.9 Gastro-esophageal reflux disease without esophagitis; F41.9 Anxiety disorder, unspecified; G89.18 Other acute postprocedural pain
CPT/HCPCS: C1713; J0690; J1100; J1885; J2250; J2405; J2704; J2795; J3010

== ENCOUNTER 2021-04-08 05:41 | Observation (INO) ==
[2021-04-08] MEDS ORDERED: Lactated Ringers 1000 ml BAG 1,000 ML IV SCH ×2 (06:00→11:00)
[2021-04-08] MEDS ORDERED: Buffered Lidocaine 1% SYRIN 1 ml INTRADERM ONE (06:00)
[2021-04-08] MEDS ORDERED: ceFAZolin 2 GM PREMIX 2 GM/50 ML BAG ONE (06:09)
[2021-04-08] MEDS ORDERED: Dexamethasone IV 4 MG/ML VIAL 1 ml VIAL ONE (06:29)
[2021-04-08] MEDS ORDERED: Midazolam 2 mg/2 ml VIAL 1 mg/ml 2 ml VIAL (2 mg) ONE ×2 (06:29→08:10)
[2021-04-08] MEDS ORDERED: Bupivacaine 0.5% SDV PF 30ML VIAL ONE (06:29)
[2021-04-08] MEDS ORDERED: Lidocaine 2% PF 5 ML VIAL ONE ×2 (06:30→06:46)
[2021-04-08] MEDS ORDERED: Propofol 10 MG/ML 20 ML BTL ONE (06:46)
[2021-04-08] MEDS ORDERED: Ropivacaine 5 MG/ML 20 ML VIAL 0.5% (100 MG) ONE ×2 (07:03→09:29)
[2021-04-08] MEDS ORDERED: fentaNYL 100 mcg/2 ml 50 MCG/ML VIAL ONE (07:54)
[2021-04-08] MEDS ORDERED: Ondansetron 4 mg VIAL 2 MG/ML 2 ml VIAL ONE (08:42)
[2021-04-08] MEDS ORDERED: Acetaminophen IV 1 GM/100ML 100 ML IV ONE (08:43)
[2021-04-08] MEDS ORDERED: Phenylephrine 40 mcg/mL 10mL (400mcg) SYRINGE ONE ×4 (08:44→10:14)
[2021-04-08] MEDS ORDERED: diPHENhydraMINE IV 50 MG/ML 1 ml VIAL (BENADRYL) IV PRN ×2 (08:46→10:36)
[2021-04-08] MEDS ORDERED: HYDROmorphone 1 MG/1 ML SYRINGE IV PRN (08:46)
[2021-04-08] MEDS ORDERED: Naloxone 0.4 mg VIAL 0.4 mg/ml 1 ml VIAL IV PRN (08:46)
[2021-04-08] MEDS ORDERED: Ondansetron 4 mg VIAL 2 MG/ML 2 ml VIAL IV PRN (08:46)
[2021-04-08] MEDS ORDERED: Lactulose 30 ml UDC PO PRN (10:36)
[2021-04-08] MEDS ORDERED: diPHENhydraMINE 25 mg TAB PO PRN (10:36)
[2021-04-08] MEDS ORDERED: Magnesium Hydroxide LIQ 30 ML UDC PO PRN (10:36)
[2021-04-08] MEDS ORDERED: Prochlorperazine 5 mg/ml 2 ml VIAL (10 mg) IV PRN (10:43)
[2021-04-08 15:09] VITALS: BP 102/60
[2021-04-08] MEDS ORDERED: ceFAZolin 1 GM ADVAN 1 GM in NS 0.9% 50 ML 50 ML IVPB SCH (16:00)
[2021-04-08] MEDS ORDERED: PITAVASTATIN 2 MG PO SCH (21:00)
[2021-04-08] MEDS ORDERED: Magnesium Hydroxide LIQ 30 ML UDC PO SCH (21:00)
[2021-04-09] MEDS ORDERED: Vitamin THERAPEUTIC TAB PO SCH (09:00)
== END 2021-04-08 16:25 | disposition home or self-care (01) ==
LOC: SSU 05:41 → OR 05:41
PROVIDERS: ADMIT Physician Assistant Surgical; ATTEND Orthopaedic Surgery Adult Reconstructive Orthopaedic Surgery